=== PATIENT | female | born 1985 | race Caucasian/White ===

== ENCOUNTER 2016-11-14 09:47 | Emergency (ER) | payer OTHER ==
[2016-11-14 10:31] LABS: microscopic required? NO
[2016-11-14 10:42] LABS: BASOPHIL % 0.3 % (0-2); RED CELL DISTRIBUTION WIDTH 12.9 % (11.5-14.5)
[2016-11-14 10:43] LABS: UA SPECIFIC GRAVITY 1.015 (1.005-1.035); urine erythrocyte NEGATIVE (NEGATIVE)
[2016-11-14 10:45] LABS: CALCIUM 8.8 mg/dL (8.5-10.1); CARBON DIOXIDE 25.1 mmol/L (21-32); CHLORIDE SERUM 104 mmol/L (98-107); CREATININE SERUM 0.6 mg/dL (0.6-1.0); GFR1 > 60 mL/min; GLUCOSE SERUM 103 mg/dL (74-106); POTASSIUM SERUM 3.9 mmol/L (3.5-5.1); SODIUM SERUM 142 mmol/L (136-145)
[2016-11-14 10:59] LABS: ALKALINE PHOSPHATASE 112 U/L (46-116); ALT/SGPT 29 U/L (14-59); AST/SGOT 17 U/L (15-37); BILIRUBIN TOTAL 1.74 mg/dL (0.20-1.00); LIPASE 71 IU/L (73-393); TOTAL PROTEIN, SERUM 6.9 g/dL (6.4-8.2)
[2016-11-14 11:04] LABS: ALBUMIN 2.9 g/dL (3.4-5.0)
[2016-11-14 11:29] LABS: PLATELET COUNT 408 x10^3mcL (130-400)
[2016-11-14 19:10] VITALS: BP 101/45
== END 2016-11-14 19:24 | disposition short-term general hospital (02) ==
LOC: ED 09:47
PROVIDERS: Emergency Medicine
DX: T81.4XXA Infection following a procedure, initial encounter (principal); A41.9 Sepsis, unspecified organism; N73.9 Female pelvic inflammatory disease, unspecified; Z90.710 Acquired absence of both cervix and uterus; R94.5 Abnormal results of liver function studies
CPT/HCPCS: J1170; J2270; J2405; J2543; J3010; J3490; J7030; J7040; Q0092; Q9967

== ENCOUNTER 2017-09-19 16:17 | Emergency (ER) | payer OTHER ==
[~2017-09-19] VITALS: Ht 162.6 cm; Wt 86.9 kg
[2017-09-19 16:25] VITALS: Ht 162.6 cm; Wt 86.9 kg
[2017-09-19 17:05] VITALS: BP 129/93
== END 2017-09-19 17:05 | disposition home or self-care (01) ==
LOC: ED 16:17
DX: M79.1 Myalgia (principal); M06.9 Rheumatoid arthritis, unspecified
CPT/HCPCS: 82962; J1885

== ENCOUNTER 2019-05-06 17:58 | Emergency (ER) | payer OTHER ==
[~2019-05-06] VITALS: Ht 160 cm; Wt 84.4 kg
[2019-05-06 19:21] VITALS: Ht 160 cm; Wt 84.4 kg
[2019-05-06 20:32] LABS: BASOPHIL % 0.8 % (0-2); PLATELET COUNT 201 x10^3mcL (130-400); RED CELL DISTRIBUTION WIDTH 12.8 % (11.5-14.5)
[2019-05-06 22:36] VITALS: BP 107/74
== END 2019-05-06 22:36 | disposition home or self-care (01) ==
LOC: ED 17:58
PROVIDERS: Emergency Medicine
DX: B34.9 Viral infection, unspecified (principal); J06.9 Acute upper respiratory infection, unspecified; J30.9 Allergic rhinitis, unspecified; M79.7 Fibromyalgia; R51 Headache; Z90.710 Acquired absence of both cervix and uterus
CPT/HCPCS: 36415; 87804

== ENCOUNTER 2019-05-07 12:48 | Emergency (ER) | payer OTHER ==
[~2019-05-07] VITALS: Ht 162.6 cm; Wt 83.5 kg
[2019-05-07 12:57] VITALS: Ht 162.6 cm; Wt 83.5 kg
[2019-05-07 13:21] LABS: BASOPHIL % 0.4 % (0-2); PLATELET COUNT 206 x10^3mcL (130-400); RED CELL DISTRIBUTION WIDTH 12.6 % (11.5-14.5)
[2019-05-07 17:17] VITALS: BP 114/73
== END 2019-05-07 17:17 | disposition home or self-care (01) ==
LOC: ED 12:48
DX: G89.29 Other chronic pain (principal); M54.5 Low back pain; M79.7 Fibromyalgia; N80.9 Endometriosis, unspecified; M06.9 Rheumatoid arthritis, unspecified; Z90.710 Acquired absence of both cervix and uterus
CPT/HCPCS: 36415; J1885; J3010; Q0092